=== PATIENT | male | born 1950 | race Hispanic/Latino ===

== ENCOUNTER 2020-09-11 12:51 | Emergency (ER) | payer MEDICARE, MEDICAID ==
[~2020-09-11] VITALS: Ht 172.7 cm; Wt 108.1 kg
[2020-09-11] MEDS ORDERED: TESSALON PERLE100 MG PO (15:17)
[2020-09-11 15:38] VITALS: BP 126/78
== END 2020-09-11 15:38 | disposition home or self-care (01) ==
LOC: ED 12:51
DX: U07.1 COVID-19 (principal); M79.10 Myalgia, unspecified site